=== PATIENT | female | born 1950 ===

== ENCOUNTER 2018-01-01 12:15 | Emergency (ER) | payer MEDICARE ==
[2018-01-01 12:57] VITALS: BP 143/89; PULSE 76; TEMP 98.1; O2SAT 98
--- NOTE | 2018-01-01 13:24 | C.PDOC ---
History Of Present Illness 67 year old female presents to ED with complaints of left shoulder pain for 2 days. She describes pain as mild aching and worsened with strenuous movement. She admits to sleeping on that shoulder. She took Advil with mild relief. Denies any numbness, weakness, chest pain or SOB. Time Seen by Provider: 01/01/18 13:04 Chief Complaint (Nursing): Upper Extremity Problem/Injury History Per: Patient History/Exam Limitations: no limitations Onset/Duration Of Symptoms: Days Current Symptoms Are (Timing): Still Present Exacerbating Factor(s): Strenuous Use Of Affected Area Recent travel outside of the [place]: No Past Medical History Reviewed: Historical Data, Nursing Documentation, Vital Signs Vital Signs: Last Vital Signs Temp 98.1 F 01/01/18 12:54 Pulse 76 01/01/18 12:54 Resp 16 01/01/18 12:54 BP 143/89 01/01/18 12:54 Pulse Ox 98 01/01/18 13:25 Family History: States: Unknown Family Hx - Social History Hx Alcohol Use: No Hx Substance Use: No - Immunization History Hx Influenza Vaccination: No Review Of Systems Cardiovascular: Negative for: Chest Pain Respiratory: Negative for: Shortness of Breath Musculoskeletal: Positive for: Shoulder Pain Neurological: Negative for: Weakness, Numbness Physical Exam - Physical Exam Appears: Non-toxic Skin: Normal Color, Warm, Dry Head: Atraumatic, Normacephalic Eye(s): bilateral: Normal Inspection Back: No Vertebral Tenderness, Paraspinal Tenderness (Mild to left trapezius) Extremity: Tenderness (Left shoulder with abduction above 60 degrees.), Other ( No joint tenderness, no crepitus, no swelling) Pulses: Left Radial: Normal, Right Radial: Normal Neurological/Psych: Oriented x3, Normal Speech, Normal Motor, Normal Sensation ED Course And Treatment O2 Sat by Pulse Oximetry: 98 (Room air) Pulse Ox Interpretation: Normal Medical Decision Making Medical Decision Making: Patient with shoulder pain for 2 days. Based on history and exam, do not suspect any fracture or dislocation thus xray not clinically indicated. Recommend Motrin, ice or heat and rest for shoulder. Advise if symptoms do not improve in one week to return or follow up with ortho. Disposition Counseled Patient/Family Regarding: Diagnosis, Need For Followup, Rx Given - Disposition Referrals: Kasandra Park MD [Staff Provider] - Disposition: HOME/ ROUTINE Disposition Time: 13:24 Condition: STABLE Additional Instructions: Please apply ice to area 15 minutes three times a day. Take Motrin 400-600mg as needed for pain every 8 hours, with food to not upset stomach. Follow up with orthopedic if pain persists over one week. Instructions: Shoulder Pain (DC) Forms: [employer] ([place]isian) - POA Present On Arrival: None - Clinical Impression Clinical Impression: Shoulder pain - PA / RADIOLOGY RN / Resident Statement MD/DO has reviewed & agrees with the documentation as recorded. - Scribe Statement The provider has reviewed the documentation as recorded by the Scribe Larry Lozano All medical record entries made by the [place] were at my direction and personally dictated by me. I have reviewed the chart and agree that the record accurately reflects my personal performance of the history, physical exam, medical decision making, and the department course for this patient. I have also personally directed, reviewed, and agree with the discharge instructions and disposition.
[2018-01-01 15:17] VITALS: RESP 18
== END 2018-01-01 13:30 | disposition home or self-care (01) ==
LOC: C.ER 12:15
DX: M25.512 Pain in left shoulder (principal)